=== PATIENT | male | born 1980 | race Caucasian/White ===

== ENCOUNTER 2023-02-15 23:47 | Emergency (ER) | payer MEDICAID ==
[~2023-02-15] VITALS: Ht 177.8 cm; Wt 104.3 kg
[2023-02-16 00:12] VITALS: BP_SYST 130
[2023-02-16] MEDS ORDERED: IBUPROFEN 600 MG TABLET PO ONE (00:15)
[2023-02-16] MEDS ORDERED: IBUP-1969 PO (00:28)
[2023-02-16 00:53] VITALS: BP_SYST 128
== END 2023-02-16 00:53 | disposition home or self-care (01) ==
LOC: SED 23:47
DX: M67.823 Other specified disorders of tendon, right elbow (principal); M25.521 Pain in right elbow; Z79.899 Other long term (current) drug therapy
CPT/HCPCS: 99283